=== PATIENT | male | born 1990 | race Caucasian/White ===

== ENCOUNTER 2018-10-29 14:06 | Emergency (ER) | payer OTHER ==
[2018-10-29 14:56] VITALS: BMI 28.3
[2018-10-29 14:58] VITALS: BP 137/87; PULSE 59; RESP 17; TEMP 98.4; O2SAT 98
--- NOTE | 2018-10-29 15:11 | ED PDOC ---
Lower Extremity Pain/Injury Time Seen by Provider: 10/29/18 14:59 Chief Complaint (Nursing): Lower Extremity Problem/Injury Chief Complaint (Provider): bump on left foot History Per: Patient History/Exam Limitations: no limitations Onset/Duration Of Symptoms: Days (1 month) Current Symptoms Are (Timing): Still Present Additional Complaint(s): 28 y/o male presents for evaluation of painful bump to bottom of left foot x 1 month. Denies known trauma, fever, swelling/redness to area. No medications taken for relief thus far. Past Medical History Reviewed: Historical Data, Nursing Documentation, Vital Signs Vital Signs: Last Vital Signs Temp 98.4 F 10/29/18 14:56 Pulse 59 L 10/29/18 14:56 Resp 17 10/29/18 14:56 BP 137/87 10/29/18 14:56 Pulse Ox 98 10/29/18 14:56 - Medical History PMH: No Chronic Diseases - Surgical History Surgical History: No Surg Hx - Family History Family History: States: Unknown Family Hx - Living Arrangements Living Arrangements: With Family - Home Medications Home Medications: Ambulatory Orders Medication Instructions Recorded Dextran 70/Hypromellose/Pf 1 each OP Q1H #1 bottle 01/19/16 [Artificial Tears Drops] Prednisone 20 mg PO DAILY #0 tablet 01/19/16 valACYclovir [Valtrex] 1 gm PO BID #14 tab 01/19/16 Ibuprofen [Motrin Tab] 1 tab PO Q6 PRN #15 tab 10/29/18 - Allergies Allergies/Adverse Reactions: Allergies Allergy/AdvReac Type Severity Reaction Status Date / Time No Known Allergies Allergy Verified 01/19/16 16:53 Review of Systems ROS Statement: Except As Marked, All Systems Reviewed And Found Negative Musculoskeletal: Positive for: Foot Pain Physical Exam - Reviewed Nursing Documentation Reviewed: Yes Vital Signs Reviewed: Yes - Physical Exam Appears: Positive for: Well, Non-toxic, No Acute Distress Skin: Positive for: Normal Color Pulses-Dorsalis Pedis (L): 2+ Pulses-Dorsalis Pedis (R): 2+ Pulses-Post. Tibialis (L): 2+ Pulses-Post. Tibialis (R): 2+ Extremity: Positive for: Normal ROM, Other (plantar left foot medial aspect with area of yellow thick skin with hyperkeratotic core, tender to touch; no surrounding erythema, fluctuance noted. FROM. Distal NV/motor intact) Neurologic/Psych: Positive for: Alert, Oriented. Negative for: Motor/Sensory Deficits - ECG O2 Sat by Pulse Oximetry: 98 - Progress ED Course And Treament: -ibuprofen PO Patient educated on findings, advised supportive footware Follow up podiatry Return precautions given Disposition - Clinical Impression Clinical Impression: [place] of foot - Patient ED Disposition Is Patient to be Admitted: No Counseled Patient/Family Regarding: Diagnosis, Need For Followup, Rx Given - Disposition Referrals: Podiatry Clinic [Outside] Disposition: Routine/Home Disposition Time: 15:17 Condition: IMPROVED Prescriptions: Ibuprofen [Motrin Tab] 1 tab PO Q6 PRN #15 tab PRN Reason: Pain, Moderate (4-7) Instructions: Corns and Calluses Print Language: JAPANESE
== END 2018-10-29 16:15 | disposition home or self-care (01) ==
LOC: H.ER 14:06
DX: L84 Corns and callosities (principal)